=== PATIENT | female | born 1990 | race Hispanic/Latino ===

== ENCOUNTER 2022-01-25 12:14 | Day surgery (SDC) | payer OTHER ==
[2022-01-25 13:07] VITALS: BMI 49.4
== END 2022-01-25 15:48 | disposition home health service (06) ==
LOC: CSHLD/OP 12:14
PROVIDERS: ATTEND Family Medicine
DX: Z01.89 Encounter for other specified special examinations (principal); O32.2XX0 Maternal care for transverse and oblique lie, not applicable or unspecified
CPT/HCPCS: 76819

== ENCOUNTER 2022-02-06 09:32 | Day surgery (SDC) | payer OTHER | END 2022-02-06 13:13 | disposition home or self-care (01) | LOC: CSHLD/OP 09:32 | PROVIDERS: ATTEND Family Medicine | DX: O24.113 Pre-existing type 2 diabetes mellitus, in pregnancy, third trimester (principal); O36.8930 Maternal care for other specified fetal problems, third trimester, not applicable or unspecified; Z3A.36 36 weeks gestation of pregnancy; Z79.4 Long term (current) use of insulin; Z79.899 Other long term (current) drug therapy | CPT/HCPCS: 76815; 76819; 99282 ==

== ENCOUNTER 2022-02-13 08:40 | Day surgery (SDC) | payer OTHER | END 2022-02-13 10:50 | disposition home or self-care (01) | LOC: CSHLD/OP 08:40 | PROVIDERS: ATTEND Family Medicine | DX: O24.419 Gestational diabetes mellitus in pregnancy, unspecified control (principal) | CPT/HCPCS: 76819; 99282 ==

== ENCOUNTER 2022-02-21 09:08 | Outpatient (CLI) | payer OTHER | END 2022-02-21 09:09 | disposition home or self-care (01) | LOC: CSHLAB 09:08 | PROVIDERS: ATTEND Family Medicine | DX: Z20.822 Contact with and (suspected) exposure to COVID-19 (principal) | CPT/HCPCS: 87811 ==

== ENCOUNTER 2022-02-23 09:34 | Inpatient (IN) | payer MEDICAID, OTHER, SELFPAY ==
[2022-02-23] MEDS ORDERED: Ondansetron PF 4 MG/2 ML Vial IVP PRN ×3 (09:44→14:06)
[2022-02-23] MEDS ORDERED: Famotidine/PF 20 mg/2ml Vial SLOW IVP PRN (09:44)
[2022-02-23] MEDS ORDERED: hydrALAZINE 20 MG/ML VIAL SLOW IVP PRN ×2 (09:44→14:06)
[2022-02-23] MEDS ORDERED: Lactated Ringer's 1,000 ML IV SCH (09:44)
[2022-02-23] MEDS ORDERED: Bicitra 30 ML UDCUP PO PRN (09:44)
[2022-02-23] MEDS ORDERED: Promethazine HCl 25 MG/ML VIAL IM PRN ×2 (09:44→11:37)
[2022-02-23] MEDS ORDERED: Azithromycin 500 MG in Sodium Chloride 0.9% 250 ML 250 ML IVPB SCH (09:44)
[2022-02-23 10:55] VITALS: BMI 49.1
[2022-02-23] MEDS ORDERED: CEFAZOLIN 3 GM, Admixture Fee 1 EACH in Sodium Chloride 0.9% 100 ML IVPB SCH (11:00)
[2022-02-23 11:12] LABS: Hemoglobin 12.5 g/dL (12.0-15.5); Mean Corpuscular HGB CONC 33.8 g/dL (32.0-36.0); Mean Corpuscular Hemoglobin 28.3 pg (27.0-33.0); Mean Corpuscular Volume 83.7 fl (81.6-98.3); Mean Platelet Volume 9.7 fl (7.4-10.4); Platelet Count 283 10x3/uL (150-450); Red Blood Cell (RBC) Count 4.42 10x6/uL (3.90-5.03); White Blood Cell (WBC) Count 8.5 10x3/uL (3.5-10.5)
[2022-02-23] MEDS ORDERED: Promethazine HCl 25 MG SUPP PR PRN (11:37)
[2022-02-23] MEDS ORDERED: Fentanyl 100 MCG/2 ML VIAL SLOW IVP PRN ×2 (11:37→15:42)
[2022-02-23] MEDS ORDERED: Ondansetron HCl/PF 4 MG/2 ML Vial IVP PRN (11:37)
[2022-02-23] MEDS ORDERED: Naloxone HCl 0.4 mg/ml Vial IVP PRN ×2 (11:37)
[2022-02-23] MEDS ORDERED: diphenhydrAMINE 50 MG/ML VIAL IVP PRN ×2 (11:37→15:43)
[2022-02-23] MEDS ORDERED: Meperidine HCl/PF 25 MG/ML VIAL SLOW IVP PRN (11:37)
[2022-02-23] MEDS ORDERED: Naloxone HCl 0.4 mg/ml Vial IV PRN (11:37)
[2022-02-23] MEDS ORDERED: Moisturizing Cream (Eucerin) 113 GM JAR TOP PRN (11:37)
[2022-02-23] MEDS ORDERED: Ketorolac Tromethamine 30 MG/ML VIAL IVP PRN (11:37)
[2022-02-23 11:39] LABS: Hep B Surf Ag Non-Reactive S/CO (NonReactive)
[2022-02-23 11:40] LABS: Syphilis Antibody Nonreactive (Nonreactive); Syphilis Antibody Index 0.02 S/CO (<1.00 Non-Reactive)
[2022-02-23] MEDS ORDERED: Ketorolac Tromethamine 30 MG/ML VIAL IVP SCH (11:45)
[2022-02-23] MEDS ORDERED: Communication Order-Pharmacy FS SCH (11:45)
[2022-02-23 11:46] LABS: HBSAg Index 0.16 S/CO (0-0.99)
[2022-02-23 11:55] LABS: ALT (SGPT) 12 U/L (8-55); AST (SGOT) 11 U/L (5-34); Albumin 3.7 g/dL (3.5-5.0); Alkaline Phosphatase 159 U/L (40-110); Anion Gap 17 mmol/L (10-20); BUN (Urea Nitrogen) 9 mg/dL (7.0-18.7); Bilirubin, Total 0.4 mg/dL (0.2-1.2); Calc. Creatinine Clearance 316 mL/min (70-130); Calcium 9.1 mg/dL (7.8-10.44); Carbon Dioxide 18 mmol/L (22-29); Chloride 106 mmol/L (98-107); Estimated GFR 126; Glucose 94 mg/dL (70-105); Potassium 4.2 mmol/L (3.5-5.1); Protein, Total 6.7 g/dL (6.0-8.3); Sodium 137 mmol/L (136-145)
[2022-02-23] MEDS ORDERED: diphenhydrAMINE 25 MG CAP PO PRN (14:06)
[2022-02-23] MEDS ORDERED: Lanolin Ointment 7 GM TUBE TOP PRN (14:06)
[2022-02-23] MEDS ORDERED: Boostrix 0.5 ML (Tdap) VIAL IM ONE (14:06)
[2022-02-23] MEDS: Ketorolac Tromethamine 30 MG/ML VIAL IVP SCH (17:34)
[2022-02-23] MEDS: Lantus 1000 UNITS/10 ML VIAL SC SCH (20:07)
[2022-02-23] MEDS: Docusate 100 MG CAP PO SCH (20:08)
[2022-02-24] MEDS: Ferrous Sulfate 325 MG TAB PO SCH ×3 (02:28→19:55)
[2022-02-24 04:47] LABS: Hemoglobin 9.3 g/dL (12.0-15.5); Mean Corpuscular HGB CONC 33.2 g/dL (32.0-36.0); Mean Corpuscular Hemoglobin 27.4 pg (27.0-33.0); Mean Corpuscular Volume 82.4 fl (81.6-98.3); Mean Platelet Volume 9.5 fl (7.4-10.4); Platelet Count 212 10x3/uL (150-450); RBC Distribution Width 15.3 % (11.5-14.5); White Blood Cell (WBC) Count 8.7 10x3/uL (3.5-10.5)
[2022-02-24] MEDS: Ketorolac Tromethamine 30 MG/ML VIAL IVP SCH ×2 (06:02)
[2022-02-24] MEDS: metFORMIN 500 MG TAB PO SCH ×2 (08:03→16:25)
[2022-02-24] MEDS: Docusate 100 MG CAP PO SCH ×2 (08:03→19:55)
[2022-02-24] MEDS: Prenatal Vitamin 1 TAB PO SCH (08:03)
[2022-02-24] MEDS: HYDROcodone/Acetaminophen 5/325 mg Tablet PO PRN ×2 (12:14→16:34)
[2022-02-24] MEDS: Simethicone Chewable 80 MG TAB PO PRN ×2 (12:14→16:34)
[2022-02-24] MEDS: Cephalexin 500 MG CAP PO SCH ×2 (14:16→21:33)
[2022-02-24] MEDS: metroNIDAZOLE 500 MG TAB PO SCH ×2 (14:16→21:33)
[2022-02-24] MEDS: Ibuprofen 800 MG TAB PO SCH (19:55)
[2022-02-24] MEDS ORDERED: Famotidine/PF 20 mg/2ml Vial ONE (21:16)
[2022-02-24] MEDS: Lantus 1000 UNITS/10 ML VIAL SC SCH (21:33)
[2022-02-25] MEDS: HYDROcodone/Acetaminophen 5/325 mg Tablet PO PRN ×3 (00:15→14:37)
[2022-02-25] MEDS: Ibuprofen 800 MG TAB PO SCH ×3 (04:07→21:00)
[2022-02-25] MEDS: Cephalexin 500 MG CAP PO SCH ×3 (06:27→21:06)
[2022-02-25] MEDS: metroNIDAZOLE 500 MG TAB PO SCH ×3 (06:27→21:06)
[2022-02-25] MEDS: Prenatal Vitamin 1 TAB PO SCH (08:12)
[2022-02-25] MEDS: Ferrous Sulfate 325 MG TAB PO SCH ×2 (08:12→21:06)
[2022-02-25] MEDS: metFORMIN 500 MG TAB PO SCH ×2 (08:12→17:05)
[2022-02-25] MEDS: Docusate 100 MG CAP PO SCH ×2 (08:12→21:06)
[2022-02-25] MEDS: Simethicone Chewable 80 MG TAB PO PRN ×2 (11:26→21:09)
[2022-02-25] MEDS ORDERED: Cephalexin 500 MG CAP PO SCH (21:00)
[2022-02-25] MEDS: Lantus 1000 UNITS/10 ML VIAL SC SCH (21:16)
[2022-02-26] MEDS: Ibuprofen 800 MG TAB PO SCH ×2 (04:58→13:12)
[2022-02-26] MEDS: Cephalexin 500 MG CAP PO SCH ×2 (05:00→13:13)
[2022-02-26] MEDS: metroNIDAZOLE 500 MG TAB PO SCH ×2 (05:59→13:12)
[2022-02-26] MEDS: Docusate 100 MG CAP PO SCH (08:46)
[2022-02-26] MEDS: Prenatal Vitamin 1 TAB PO SCH (08:46)
[2022-02-26] MEDS: Ferrous Sulfate 325 MG TAB PO SCH (08:46)
[2022-02-26] MEDS: metFORMIN 500 MG TAB PO SCH (08:46)
[2022-02-26] MEDS: Simethicone Chewable 80 MG TAB PO PRN (08:47)
[2022-02-26] MEDS: HYDROcodone/Acetaminophen 5/325 mg Tablet PO PRN ×2 (08:47→13:16)
[2022-02-26 11:46] VITALS: BP 142/79; TEMP 98.4
== END 2022-02-26 14:13 | disposition home or self-care (01) | DRG 786 ==
LOC: CSHLD 09:34 → CSHPED 16:30
PROVIDERS: ADMIT Family Medicine; ATTEND Family Medicine
PROC: 10D00Z1 Extraction of Products of Conception, Low, Open Approach (ICD-10-PCS; principal; 2022-02-23)
DX: O34.211 Maternal care for low transverse scar from previous cesarean delivery (principal); O24.12 Pre-existing type 2 diabetes mellitus, in childbirth; Z3A.37 37 weeks gestation of pregnancy; Z37.0 Single live birth; Z79.4 Long term (current) use of insulin; O99.214 Obesity complicating childbirth; E11.9 Type 2 diabetes mellitus without complications; E66.01 Morbid (severe) obesity due to excess calories
CPT/HCPCS: 36415; 36416; 51702; 80053; 85027; 86780; 86850; 86900; 86901; 87340; J0456; J0690; J1200; J1815; J1885; J3010; J3490; J7050